=== PATIENT | female | born 1975 ===

== ENCOUNTER 2020-11-29 15:39 | Emergency (ER) | payer OTHER ==
--- NOTE | 2020-11-29 16:24 | EDM.PDOC ---
ED HPI GENERAL MEDICAL PROBLEM - General Chief Complaint: Neurological Problem Stated Complaint: RT SIDE FACIAL NUMBNESS Time Seen by Provider: 11/29/20 16:23 Source of Information: Reports: Patient History Limitations: Reports: No Limitations - History of Present Illness INITIAL COMMENTS - FREE TEXT/NARRATIVE: 44-year-old female past medical history fibromyalgia presents for right-sided facial numbness. Patient states that she has noted symptoms for about the last. She states that it started off as a numbness in the tip of her tongue and is progressed to her right maxillary face and up into her right presybeterian. She denies any associated pain. She denies any associated facial muscle weakness. No one- sided body weakness. No slurred speech or confusion. She does note that she recently had a sinus infection and was treated with antibiotics in the past has since improved. - Related Data Allergies Allergy/AdvReac Type Severity Reaction Status Date / Time No Known Allergies Allergy Verified 11/29/20 16:59 Home Meds: Home Meds Amitriptyline [Elavil] 25 mg PO DAILY 11/29/20 [History] Amoxicillin/Potassium Clav [Augmentin 875-125 Tablet] 1 dose PO ASDIRECTED 11/29/20 [History] Fluconazole 150 mg PO DAILY 11/29/20 [History] Gabapentin [Neurontin] 600 mg PO DAILY 11/29/20 [History] Levothyroxine Sodium [Synthroid] 100 mcg PO DAILY 11/29/20 [History] predniSONE [Prednisone] 40 mg PO DAILY 6 Days #12 tablet 11/29/20 [Rx] ED ROS GENERAL - Review of Systems Review Of Systems: Comprehensive ROS is negative, except as noted in HPI. ED EXAM, GENERAL - Physical Exam Exam: See Below Exam Limited By: No Limitations General Appearance: Alert, WD/WN, No Apparent Distress Eye Exam: Bilateral Eye: EOMI, PERRL Ears: Hearing Grossly Normal Throat/Mouth: Normal Voice, No Airway Compromise Head: Atraumatic, Normocephalic Neck: Normal Inspection Respiratory/Chest: No Respiratory Distress, No Accessory Muscle Use Cardiovascular: Normal Peripheral Pulses Extremities: Normal Inspection Neurological: Alert, CN II-XII Intact, Normal Cognition, Normal Gait, No Motor/Sensory Deficits Psychiatric: Normal Affect, Normal Mood Skin Exam: Warm, Dry, Intact, Normal Color Course - Vital Signs Last Recorded V/S: Last Vital Signs Temp 97.1 F 11/29/20 17:16 Pulse 103 H 11/29/20 17:16 Resp 16 11/29/20 17:16 BP 118/85 11/29/20 17:16 Pulse Ox 96 11/29/20 17:16 - Orders/Labs/Meds Orders: Active Orders 24 hr Category Date Time Status Head wo Cont [CT] Stat Exams 11/29/20 16:47 Taken - Re-Assessments/Exams Free Text/Narrative Re-Assessment/Exam: 11/29/20 16:49 Patient presents with one-sided facial numbness. Possible Perez's palsy versus nonspecific neuropathy. Will get head CT to ensure no gross abnormalities. If normal will discharge with course of prednisone. Recommend neurology follow-up. Departure - Departure Time of Disposition: 18:55 Disposition: Home, Self-Care 01 Condition: Good Clinical Impression: Right facial numbness - Discharge Information Prescriptions: predniSONE [Prednisone] 40 mg PO DAILY 6 Days #12 tablet Instructions: Perez Palsy, Adult Referrals: Jerrell Copeland MD [Primary Care Provider] - Forms: ED Department Discharge Additional Instructions: Please follow-up with neurology. Information is provided below. Have sent a steroid to your pharmacy for the next 6 days. [facility] Neurology Professional [address], [address] [place] [address] The following information is given to patients seen in the emergency department who are being discharged to home. This information is to outline your options for follow-up care. We provide all patients seen in our emergency department with a follow-up referral. The need for follow-up, as well as the timing and circumstances, are variable depending upon the specifics of your emergency department visit. If you don't have a primary care physician on staff, we will provide you with a referral. We always advise you to contact your personal physician following an emergency department visit to inform them of the circumstance of the visit and for follow-up with them and/or the need for any referrals to a consulting specialist. The emergency department will also refer you to a specialist when appropriate. This referral assures that you have the opportunity for follow-up care with a specialist. All of these measure are taken in an effort to provide you with optimal care, which includes your follow-up. Under all circumstances we always encourage you to contact your private physician who remains a resource for coordinating your care. When calling for follow-up care, please make the office aware that this follow-up is from your recent emergency room visit. If for any reason you are refused follow-up, please contact the [facility] Department at and asked to speak to the emergency department charge nurse. Please follow up with your primary care physician. If you do not have a primary care physician, see below: [facility] [address] [place] [address] [id number] [facility] [address] [place] [address] [facility] [address] [place] [id number] Sepsis Event Note (ED) - Focused Exam Vital Signs: Vital Signs Temp Pulse Resp BP Pulse Ox 11/29/20 17:16 97.1 F 103 H 16 118/85 96 11/29/20 16:15 96.9 F 109 H 18 144/87 H 98 - My Orders Last 24 Hours: My Active Orders 11/29/20 16:47 Head wo Cont [CT] Stat - Assessment/Plan Last 24 Hours: My Active Orders 11/29/20 16:47 Head wo Cont [CT] Stat
--- NOTE | 2020-11-29 19:28 | CT ---
Clinical INDICATION: Right facial numbness. TECHNIQUE: Axial noncontrast CT cuts were performed from the skullbase vertex. FINDINGS: There is no intracranial mass, hemorrhage, infarction or contusion. There is no midline shift or transtentorial herniation. The calvarium is intact. There are two small mucous retention cysts within the right maxillary sinus. The other paranasal sinuses appear normal. The orbital contents are unremarkable. IMPRESSION: Essentially negative study. Please note that all CT scans at this facility use dose modulation, iterative reconstruction, and/or weight-based dosing when appropriate to reduce radiation dose to as low as reasonably achievable. Dictated by Sidney Norman MD @ 11/29/2020 7:26:42 PM (Electronically Signed)
== END 2020-11-29 19:45 | disposition home or self-care (01) ==
LOC: MW.ED 15:39
DX: R20.0 Anesthesia of skin (principal); Z79.899 Other long term (current) drug therapy
CPT/HCPCS: 70450; 70450-26; 99284-25